=== PATIENT | male | born 1950 | race Two or more races ===

== ENCOUNTER 2016-11-28 04:18 | Emergency (ER) | payer MEDICAID ==
[~2016-11-28] VITALS: Ht 182.9 cm; Wt 104.3 kg
[~2016-11-28 04:18] MED LIST: ASPI81TA27 PO; GABA300T3 PO; GLIP-115 PO; LISI-646 PO; LOS25T GT; METF-490 PO; SULF400T11 PO; TERA1CAP33 PO
[2016-11-28 07:35] LABS: Urine RBC None Seen /hpf (0 - 3)
[2016-11-28 07:51] LABS: Urine Bilirubin Negative (Negative); Urine Blood Negative /uL (Negative); Urine Color Yellow (Yellow); Urine Glucose 4+ mg/dL (Normal); Urine Ketone Negative (Negative); Urine Mucus FEW (None Seen); Urine Nitrite Negative (Negative); Urine Squamous Epithelial Cell FEW /hpf (<5); Urine Urobilinogen Normal (Negative)
[2016-11-28 07:52] LABS: Basophils # (auto) 0.1 uL; Basophils % (auto) 1.2 % (0.0-2.0); Eosinophils # (auto) 0.2 uL; Eosinophils % (auto) 2.9 % (0.0-7.0); Hematocrit 44.7 % (41.0-53.0); Hemoglobin 15.2 g/dL (13.5-17.5); Lymphocytes # (auto) 1.5 uL; Lymphocytes % (auto) 20.3 % (10.0-50.0); Mean Corpuscular Hemoglobin 31.7 pg (28.0-32.0); Mean Corpuscular Volume 93.1 fL (80.0-100.0); Mean Platelet Volume 9.3 fL (6.9-10.8); Monocytes # (auto) 0.6 uL; Monocytes % (auto) 7.4 % (0.0-12.0); Neutrophils # (auto) 5.1 uL; Neutrophils % (auto) 68.2 % (37.0-80.0); Nucleated Red Blood Cells % 0.1 %; Platelet Count (auto) 207 10^3/uL (140-450); Red Cell Distribution Width 13.5 % (11.8-14.3); White Blood Cell 7.5 10^3/uL (4.4-10.8)
[2016-11-28 07:59] VITALS: BP 147/82
[2016-11-28 08:09] LABS: Albumin 3.6 g/dL (3.4-5.0); BUN/Creatinine Ratio 15.1; Bilirubin, Total 0.8 mg/dL (0.2-1.0); Calcium 8.7 mg/dL (8.5-10.1); Potassium 3.8 mmol/L (3.5-5.1); Total Protein 7.8 g/dL (6.4-8.2)
== END 2016-11-28 08:45 | disposition home or self-care (01) ==
LOC: ER 04:19
DX: R30.0 Dysuria (principal); R10.9 Unspecified abdominal pain; E11.9 Type 2 diabetes mellitus without complications; E78.5 Hyperlipidemia, unspecified; I10 Essential (primary) hypertension; Z79.82 Long term (current) use of aspirin
CPT/HCPCS: 36415; 71020; 80053; 81001; 84484; 85025; 93005

== ENCOUNTER 2017-01-28 11:47 | Emergency (ER) | payer MEDICAID ==
[~2017-01-28] VITALS: Ht 175.3 cm; Wt 104.3 kg
[2017-01-28 12:49] LABS: Basophils # (auto) 0.1 uL; Basophils % (auto) 0.9 % (0.0-2.0); Eosinophils # (auto) 0.2 uL; Lymphocytes # (auto) 1.7 uL; Lymphocytes % (auto) 22.1 % (10.0-50.0); Mean Corpuscular Hemoglobin 30.9 pg (28.0-32.0); Mean Corpuscular Hgb Conc. 33.3 g/dL (32.0-36.0); Mean Corpuscular Volume 92.8 fL (80.0-100.0); Mean Platelet Volume 9.9 fL (6.9-10.8); Monocytes # (auto) 0.5 uL; Monocytes % (auto) 6.9 % (0.0-12.0); Neutrophils # (auto) 5.2 uL; Neutrophils % (auto) 67.1 % (37.0-80.0); Nucleated Red Blood Cells % 0.1 %; Platelet Count (auto) 186 10^3/uL (140-450); Red Cell Distribution Width 13.5 % (11.8-14.3); White Blood Cell 7.8 10^3/uL (4.4-10.8)
[2017-01-28 12:56] LABS: Albumin 3.7 g/dL (3.4-5.0); BUN/Creatinine Ratio 14.7; Bilirubin, Total 0.5 mg/dL (0.2-1.0); Calcium 8.6 mg/dL (8.5-10.1); Magnesium 2.1 mg/dL (1.6-2.6); Total Protein 7.6 g/dL (6.4-8.2)
[2017-01-28 14:01] LABS: Urine Bilirubin Negative (Negative); Urine Blood Negative /uL (Negative); Urine Color Yellow (Yellow); Urine Glucose 4+ mg/dL (Normal); Urine Ketone Negative (Negative); Urine Nitrite Negative (Negative); Urine RBC <1 /hpf (0 - 3); Urine Squamous Epithelial Cell FEW /hpf (<5); Urine Urobilinogen Normal (Negative)
[2017-01-28 16:00] VITALS: BP 142/82
== END 2017-01-28 17:27 | disposition home or self-care (01) ==
LOC: ER 11:47
DX: N50.819 Testicular pain, unspecified (principal); E11.65 Type 2 diabetes mellitus with hyperglycemia; N40.0 Benign prostatic hyperplasia without lower urinary tract symptoms; I10 Essential (primary) hypertension; N45.1 Epididymitis; Z79.82 Long term (current) use of aspirin; Z79.899 Other long term (current) drug therapy
CPT/HCPCS: 36415; 74176; 80053; 81001; 83735; 84484; 85025; 93005

== ENCOUNTER 2017-03-24 00:06 | Emergency (ER) | payer MEDICAID ==
[~2017-03-24] VITALS: Ht 170.2 cm; Wt 104.3 kg
[2017-03-24 00:19] VITALS: BP 172/92
== END 2017-03-24 05:09 | disposition home or self-care (01) ==
LOC: ER 00:08
DX: J40 Bronchitis, not specified as acute or chronic (principal); E11.9 Type 2 diabetes mellitus without complications; E78.5 Hyperlipidemia, unspecified; I10 Essential (primary) hypertension; Z79.82 Long term (current) use of aspirin; Z79.84 Long term (current) use of oral hypoglycemic drugs

== ENCOUNTER 2017-05-26 02:57 | Emergency (ER) | payer MEDICAID ==
[~2017-05-26] VITALS: Ht 172.7 cm; Wt 103.4 kg
[2017-05-26 03:57] LABS: Basophils # (auto) 0.1 uL; Basophils % (auto) 0.9 % (0.0-2.0); Eosinophils # (auto) 0.2 uL; Eosinophils % (auto) 3.1 % (0.0-7.0); Hematocrit 42.9 % (41.0-53.0); Hemoglobin 14.6 g/dL (13.5-17.5); Lymphocytes # (auto) 1.8 uL; Lymphocytes % (auto) 24.7 % (10.0-50.0); Mean Corpuscular Hemoglobin 31.7 pg (28.0-32.0); Mean Corpuscular Volume 93.3 fL (80.0-100.0); Monocytes # (auto) 0.5 uL; Monocytes % (auto) 7.2 % (0.0-12.0); Neutrophils # (auto) 4.7 uL; Neutrophils % (auto) 64.1 % (37.0-80.0); Platelet Count (auto) 185 10^3/uL (140-450); Red Cell Distribution Width 13.7 % (11.8-14.3); White Blood Cell 7.4 10^3/uL (4.4-10.8)
[2017-05-26 04:20] LABS: Albumin 3.5 g/dL (3.4-5.0); BUN/Creatinine Ratio 16.3; Bilirubin, Total 0.4 mg/dL (0.2-1.0); Calcium 8.3 mg/dL (8.5-10.1); Magnesium 2.1 mg/dL (1.6-2.6); Potassium 3.6 mmol/L (3.5-5.1); Total Protein 7.4 g/dL (6.4-8.2)
[2017-05-26 04:26] LABS: INR 0.94 (0.9-1.15); Partial Thromboplastin Time 24.9 sec (22.64-33.71); Prothrombin Time 10.2 sec (9.37-12.3)
[2017-05-26] MEDS ORDERED: SODIUM CHLORIDE 0.9% 1,000 ML IV ONE (07:00)
[2017-05-26 09:00] VITALS: BP 145/95
[2017-05-26] MEDS ORDERED: InsuLIN REG 1unit/0.01ml Soln (100units/ml) SC ONE (09:00)
== END 2017-05-26 09:46 | disposition home or self-care (01) ==
LOC: ER 02:58
DX: R07.89 Other chest pain (principal); E11.65 Type 2 diabetes mellitus with hyperglycemia; F41.9 Anxiety disorder, unspecified; E78.5 Hyperlipidemia, unspecified; I10 Essential (primary) hypertension; R51 Headache; Z79.4 Long term (current) use of insulin
CPT/HCPCS: 36415; 70450; 71045; 80053; 82962; 83735; 83880; 84484; 85025; 85610; 85730; 93005; 96360; 96372; 99291; J1815; J7030

== ENCOUNTER 2017-07-04 10:50 | Emergency (ER) | payer MEDICAID ==
[~2017-07-04] VITALS: Ht 175.3 cm; Wt 104.3 kg
[2017-07-04 11:55] LABS: Urine WBC None Seen /hpf (0 - 3)
[2017-07-04 12:03] LABS: Urine Bacteria NONE SEEN /hpf (None Seen); Urine Blood Negative /uL (Negative); Urine Specific Gravity 1.032 (1.001-1.035)
[2017-07-04 12:08] LABS: Basophils # (auto) 0.1 uL; Basophils % (auto) 0.9 % (0.0-2.0); Eosinophils # (auto) 0 uL; Eosinophils % (auto) 0.6 % (0.0-7.0); Hematocrit 45.9 % (41.0-53.0); Hemoglobin 15.3 g/dL (13.5-17.5); Lymphocytes # (auto) 1.1 uL; Lymphocytes % (auto) 14.6 % (10.0-50.0); Mean Corpuscular Hemoglobin 31.2 pg (28.0-32.0); Mean Corpuscular Hgb Conc. 33.4 g/dL (32.0-36.0); Mean Corpuscular Volume 93.2 fL (80.0-100.0); Monocytes # (auto) 0.4 uL; Monocytes % (auto) 4.6 % (0.0-12.0); Neutrophils # (auto) 6.2 uL; Neutrophils % (auto) 79.3 % (37.0-80.0); Nucleated Red Blood Cells % 0.1 %; Platelet Count (auto) 218 10^3/uL (140-450); Red Blood Cells 4.93 10^6/uL (4.5-5.90); Red Cell Distribution Width 13.3 % (11.8-14.3); White Blood Cell 7.8 10^3/uL (4.4-10.8)
[2017-07-04 12:27] LABS: Alanine Aminotransferase 25 U/L (16-61); Albumin 3.7 g/dL (3.4-5.0); Alkaline Phosphatase 76 U/L (45-117); Anion Gap 11 (5-15); Aspartate Aminotransferase 17 U/L (15-37); BUN/Creatinine Ratio 16.7; Bilirubin, Total 0.5 mg/dL (0.2-1.0); Blood Urea Nitrogen 12 mg/dL (7-18); Calcium 8.4 mg/dL (8.5-10.1); Carbon Dioxide 22 mmol/L (21-32); Chloride 101 mmol/L (98-107); GFR African American 141 mL/min; GFR Non-African American 117 mL/min; Glucose 297 mg/dL (74-106); Potassium 3.8 mmol/L (3.5-5.1); Sodium 134 mmol/L (136-145); Total Protein 7.6 g/dL (6.4-8.2)
[2017-07-04] MEDS ORDERED: ONDANSETRON HCL 4 MG/2 ML VIAL IV ONE (14:15)
[2017-07-04] MEDS ORDERED: ONDANSETRON HCL 4 MG/2 ML VIAL ONE (14:15)
[2017-07-04 14:56] LABS: Amylase 55 U/L (25-115); Lipase 103 U/L (73-393)
[2017-07-04 15:00] VITALS: BP 144/74
[2017-07-04] MEDS ORDERED: ACETAMINOPHEN 500 MG TAB PO ONE (15:15)
== END 2017-07-04 15:40 | disposition home or self-care (01) ==
LOC: ER 10:50
DX: R10.84 Generalized abdominal pain (principal); E11.65 Type 2 diabetes mellitus with hyperglycemia; J32.0 Chronic maxillary sinusitis; I10 Essential (primary) hypertension; R51 Headache; Z79.82 Long term (current) use of aspirin; Z79.84 Long term (current) use of oral hypoglycemic drugs
CPT/HCPCS: 36415; 70450; 71046; 74176; 80053; 81001; 82150; 82962; 83690; 84484; 85025; 93005; 96374; 99285; J2405

== ENCOUNTER 2017-10-24 02:45 | Emergency (ER) | payer MEDICAID ==
[~2017-10-24] VITALS: Ht 172.7 cm; Wt 102.1 kg
[2017-10-24 03:36] LABS: Basophils # (auto) 0.1 uL; Basophils % (auto) 1.2 % (0.0-2.0); Eosinophils # (auto) 0.2 uL; Eosinophils % (auto) 2.9 % (0.0-7.0); Hematocrit 44.4 % (41.0-53.0); Hemoglobin 15.2 g/dL (13.5-17.5); Lymphocytes # (auto) 1.7 uL; Lymphocytes % (auto) 18.9 % (10.0-50.0); Mean Corpuscular Hemoglobin 31.9 pg (28.0-32.0); Mean Corpuscular Hgb Conc. 34.2 g/dL (32.0-36.0); Mean Corpuscular Volume 93.4 fL (80.0-100.0); Monocytes # (auto) 0.8 uL; Monocytes % (auto) 8.6 % (0.0-12.0); Neutrophils % (auto) 68.4 % (37.0-80.0); Nucleated Red Blood Cells % 0.1 %; Platelet Count (auto) 186 10^3/uL (140-450); Red Blood Cells 4.75 10^6/uL (4.5-5.90); Red Cell Distribution Width 13.2 % (11.8-14.3); White Blood Cell 8.8 10^3/uL (4.4-10.8)
[2017-10-24 03:48] LABS: INR 0.89 (0.9-1.15); Partial Thromboplastin Time 26.5 sec (23.78-33.04); Prothrombin Time 9.6 sec (9.27-12.13)
[2017-10-24 03:52] LABS: Alanine Aminotransferase 24 U/L (16-61); Albumin 3.4 g/dL (3.4-5.0); Anion Gap 10 (5-15); Aspartate Aminotransferase 17 U/L (15-37); BUN/Creatinine Ratio 10.7; Blood Urea Nitrogen 9 mg/dL (7-18); Calcium 8.2 mg/dL (8.5-10.1); Carbon Dioxide 23 mmol/L (21-32); Chloride 102 mmol/L (98-107); GFR African American 118 mL/min; GFR Non-African American 98 mL/min; Glucose 295 mg/dL (74-106); Magnesium 2.1 mg/dL (1.6-2.6); Potassium 3.5 mmol/L (3.5-5.1); Sodium 135 mmol/L (136-145)
[2017-10-24 03:57] LABS: Alkaline Phosphatase 81 U/L (45-117); Bilirubin, Total 0.5 mg/dL (0.2-1.0); Total Protein 7.7 g/dL (6.4-8.2)
[2017-10-24 07:25] VITALS: BP 132/76
== END 2017-10-24 07:49 | disposition home or self-care (01) ==
LOC: ER 02:45
DX: R07.89 Other chest pain (principal); E11.65 Type 2 diabetes mellitus with hyperglycemia; E11.40 Type 2 diabetes mellitus with diabetic neuropathy, unspecified; K21.9 Gastro-esophageal reflux disease without esophagitis; I10 Essential (primary) hypertension; Z79.82 Long term (current) use of aspirin; Z79.84 Long term (current) use of oral hypoglycemic drugs
CPT/HCPCS: 36415; 71046; 80053; 82962; 83735; 84484; 85025; 85610; 85730; 93005

== ENCOUNTER 2017-12-07 03:39 | Emergency (ER) | payer MEDICARE, MEDICAID ==
[~2017-12-07] VITALS: Ht 170.2 cm; Wt 122.5 kg
[2017-12-07] MEDS ORDERED: ASPirin 81 mg TAB PO ONE (08:00)
[2017-12-07] MEDS ORDERED: NITROGLYCERIN 0.4 MG SL TAB SL ONE (08:00)
[2017-12-07 08:18] VITALS: BP 141/89
[2017-12-07 08:27] LABS: Basophils # (auto) 0.1 uL; Eosinophils # (auto) 0.3 uL; Hematocrit 43.1 % (41.0-53.0); Hemoglobin 14.4 g/dL (13.5-17.5); Lymphocytes # (auto) 1.3 uL; Lymphocytes % (auto) 19.5 % (10.0-50.0); Mean Corpuscular Hemoglobin 31.4 pg (28.0-32.0); Mean Corpuscular Hgb Conc. 33.4 g/dL (32.0-36.0); Mean Corpuscular Volume 94.1 fL (80.0-100.0); Monocytes # (auto) 0.8 uL; Monocytes % (auto) 11.9 % (0.0-12.0); Neutrophils # (auto) 4.2 uL; Neutrophils % (auto) 62.6 % (37.0-80.0); Platelet Count (auto) 188 10^3/uL (140-450); Red Blood Cells 4.58 10^6/uL (4.5-5.90); Red Cell Distribution Width 13.2 % (11.8-14.3); White Blood Cell 6.8 10^3/uL (4.4-10.8)
[2017-12-07 08:46] LABS: Albumin 3.5 g/dL (3.4-5.0); Anion Gap 8 (5-15); Blood Urea Nitrogen 16 mg/dL (7-18); Calcium 8.5 mg/dL (8.5-10.1); Carbon Dioxide 25 mmol/L (21-32); Chloride 102 mmol/L (98-107); Glucose 142 mg/dL (74-106); Potassium 3.6 mmol/L (3.5-5.1); Sodium 135 mmol/L (136-145)
[2017-12-07 08:52] LABS: Alanine Aminotransferase 24 U/L (16-61); Alkaline Phosphatase 57 U/L (45-117); Aspartate Aminotransferase 12 U/L (15-37); BUN/Creatinine Ratio 18.6; Bilirubin, Total 0.6 mg/dL (0.2-1.0); GFR African American 115 mL/min; GFR Non-African American 95 mL/min; Total Protein 7.5 g/dL (6.4-8.2)
[2017-12-07 08:55] LABS: INR 0.94 (0.9-1.15); Partial Thromboplastin Time 26.8 sec (23.78-33.04); Prothrombin Time 10.1 sec (9.27-12.13)
== END 2017-12-07 09:12 | disposition home or self-care (01) ==
LOC: ER 03:51
DX: R07.89 Other chest pain (principal); F41.9 Anxiety disorder, unspecified; E11.9 Type 2 diabetes mellitus without complications; I10 Essential (primary) hypertension; K21.9 Gastro-esophageal reflux disease without esophagitis
CPT/HCPCS: 36415; 71046; 80053; 83735; 83880; 84484; 85025; 85610; 85730

== ENCOUNTER 2018-03-04 05:42 | Emergency (ER) | payer MEDICARE, MEDICAID ==
[~2018-03-04] VITALS: Ht 172.7 cm; Wt 81.6 kg
[2018-03-04 05:59] VITALS: BP 146/84
== END 2018-03-04 07:47 | disposition home or self-care (01) ==
LOC: ER 05:46
DX: S06.309A Unspecified focal traumatic brain injury with loss of consciousness of unspecified duration, initial encounter (principal); E11.9 Type 2 diabetes mellitus without complications; K21.9 Gastro-esophageal reflux disease without esophagitis; I10 Essential (primary) hypertension; F41.9 Anxiety disorder, unspecified; X58.XXXA Exposure to other specified factors, initial encounter; Y93.89 Activity, other specified; Y92.89 Other specified places as the place of occurrence of the external cause; Y99.8 Other external cause status
CPT/HCPCS: 70450

== ENCOUNTER 2018-06-04 05:12 | Emergency (ER) | payer MEDICARE, MEDICAID ==
[~2018-06-04] VITALS: Ht 172.7 cm; Wt 104.3 kg
[2018-06-04 07:49] LABS: Basophils # (auto) 0.1 uL; Basophils % (auto) 0.9 % (0.0-2.0); Eosinophils # (auto) 0.2 uL; Eosinophils % (auto) 2.9 % (0.0-7.0); Hematocrit 42.4 % (41.0-53.0); Hemoglobin 14.2 g/dL (13.5-17.5); Lymphocytes # (auto) 1.9 uL; Lymphocytes % (auto) 26.2 % (10.0-50.0); Mean Corpuscular Hemoglobin 31.5 pg (28.0-32.0); Mean Corpuscular Hgb Conc. 33.4 g/dL (32.0-36.0); Mean Corpuscular Volume 94.1 fL (80.0-100.0); Monocytes # (auto) 0.5 uL; Monocytes % (auto) 7.3 % (0.0-12.0); Neutrophils # (auto) 4.5 uL; Neutrophils % (auto) 62.7 % (37.0-80.0); Nucleated Red Blood Cells % 0.1 %; Platelet Count (auto) 213 10^3/uL (140-450); Red Cell Distribution Width 13.2 % (11.8-14.3); White Blood Cell 7.2 10^3/uL (4.4-10.8)
[2018-06-04 07:52] LABS: Albumin 3.5 g/dL (3.4-5.0)
[2018-06-04 07:53] LABS: INR 0.9 (0.9-1.15); Partial Thromboplastin Time 23.9 sec (23.78-33.04); Prothrombin Time 9.7 sec (9.27-12.13)
[2018-06-04 07:55] LABS: BUN/Creatinine Ratio 13.8
[2018-06-04 07:58] LABS: Bilirubin, Total 0.4 mg/dL (0.2-1.0); Total Protein 7.3 g/dL (6.4-8.2)
[2018-06-04] MEDS ORDERED: SODIUM CHLORIDE 0.9% 1,000 ML IV ONE ×2 (08:03)
[2018-06-04] MEDS ORDERED: InsuLIN REG 1unit/0.01ml Soln (100units/ml) IV ONE (08:15)
[2018-06-04 08:49] LABS: Potassium 3.4 mmol/L (3.5-5.1)
[2018-06-04 11:00] VITALS: BP 146/86
== END 2018-06-04 12:26 | disposition home or self-care (01) ==
LOC: ER 05:12
DX: E11.65 Type 2 diabetes mellitus with hyperglycemia (principal); F41.9 Anxiety disorder, unspecified; R42 Dizziness and giddiness; R51 Headache; I10 Essential (primary) hypertension; K21.9 Gastro-esophageal reflux disease without esophagitis; Z79.4 Long term (current) use of insulin; Z79.82 Long term (current) use of aspirin
CPT/HCPCS: 36415; 80053; 82962; 83880; 84484; 85025; 85610; 85730; 96361; 96374; 99283; J1815; J7030

== ENCOUNTER 2018-09-03 02:19 | Emergency (ER) | payer MEDICARE, MEDICAID ==
[~2018-09-03] VITALS: Ht 162.6 cm; Wt 97.2 kg
[2018-09-03 03:52] LABS: Basophils # (auto) 0.1 uL; Basophils % (auto) 1.5 % (0.0-2.0); Eosinophils # (auto) 0.2 uL; Eosinophils % (auto) 3.3 % (0.0-7.0); Hematocrit 40.7 % (41.0-53.0); Hemoglobin 13.8 g/dL (13.5-17.5); Lymphocytes # (auto) 1.8 uL; Lymphocytes % (auto) 24.5 % (10.0-50.0); Mean Corpuscular Hemoglobin 31.8 pg (28.0-32.0); Mean Corpuscular Hgb Conc. 33.8 g/dL (32.0-36.0); Mean Corpuscular Volume 94.1 fL (80.0-100.0); Monocytes # (auto) 0.5 uL; Monocytes % (auto) 7.3 % (0.0-12.0); Neutrophils # (auto) 4.6 uL; Neutrophils % (auto) 63.4 % (37.0-80.0); Nucleated Red Blood Cells % 0.1 %; Platelet Count (auto) 190 10^3/uL (140-450); Red Blood Cells 4.33 10^6/uL (4.5-5.90); Red Cell Distribution Width 13.3 % (11.8-14.3); White Blood Cell 7.3 10^3/uL (4.4-10.8)
[2018-09-03 04:10] LABS: INR 0.93 (0.9-1.15); Partial Thromboplastin Time 25.5 sec (23.64-32.05)
[2018-09-03 04:13] LABS: Alanine Aminotransferase 20 U/L (16-61); Albumin 3.1 g/dL (3.4-5.0); Anion Gap 10 (5-15); Aspartate Aminotransferase 12 U/L (15-37); BUN/Creatinine Ratio 18.3; Blood Urea Nitrogen 15 mg/dL (7-18); Calcium 8.2 mg/dL (8.5-10.1); Carbon Dioxide 24 mmol/L (21-32); Chloride 105 mmol/L (98-107); GFR African American 121 mL/min; GFR Non-African American 100 mL/min; Glucose 358 mg/dL (74-106); Potassium 3.6 mmol/L (3.5-5.1); Sodium 139 mmol/L (136-145)
[2018-09-03 04:18] LABS: Alkaline Phosphatase 74 U/L (45-117); Bilirubin, Total 0.4 mg/dL (0.2-1.0); Total Protein 6.6 g/dL (6.4-8.2)
[2018-09-03 06:19] VITALS: BP 127/80
== END 2018-09-03 06:48 | disposition home or self-care (01) ==
LOC: ER 02:19
DX: J02.9 Acute pharyngitis, unspecified (principal); J01.00 Acute maxillary sinusitis, unspecified; K02.9 Dental caries, unspecified; N48.1 Balanitis; E11.9 Type 2 diabetes mellitus without complications; K21.9 Gastro-esophageal reflux disease without esophagitis; I10 Essential (primary) hypertension; Z86.39 Personal history of other endocrine, nutritional and metabolic disease; Z79.82 Long term (current) use of aspirin; Z79.899 Other long term (current) drug therapy
CPT/HCPCS: 36415; 71045; 80053; 82962; 83880; 84484; 85025; 85610; 85730; 93005; 94761

== ENCOUNTER 2018-12-24 02:01 | Inpatient (IN) | payer MEDICARE, MEDICAID ==
[~2018-12-24] VITALS: Ht 182.9 cm; Wt 104.3 kg
[~2018-12-24 02:01] MED LIST changes: +ASPI-404 PO; -ASPI81TA27 PO; -GLIP-115 PO; +GLIP5TAB12 PO
[2018-12-24 03:02] LABS: Basophils # (auto) 0.1 uL; Basophils % (auto) 1.5 % (0.0-2.0); Eosinophils # (auto) 0.3 uL; Eosinophils % (auto) 4.1 % (0.0-7.0); Hematocrit 43.9 % (41.0-53.0); Hemoglobin 14.9 g/dL (13.5-17.5); Lymphocytes # (auto) 2.2 uL; Lymphocytes % (auto) 31.2 % (10.0-50.0); Mean Corpuscular Hemoglobin 31.9 pg (28.0-32.0); Mean Corpuscular Hgb Conc. 33.9 g/dL (32.0-36.0); Mean Corpuscular Volume 94.1 fL (80.0-100.0); Monocytes # (auto) 0.6 uL; Neutrophils # (auto) 3.8 uL; Neutrophils % (auto) 54.2 % (37.0-80.0); Platelet Count (auto) 192 10^3/uL (140-450); Red Blood Cells 4.67 10^6/uL (4.5-5.90); Red Cell Distribution Width 13.2 % (11.8-14.3)
[2018-12-24 03:23] LABS: Albumin 3.4 g/dL (3.4-5.0); Anion Gap 6 (5-15); Blood Urea Nitrogen 16 mg/dL (7-18); Calcium 8.4 mg/dL (8.5-10.1); Carbon Dioxide 30 mmol/L (21-32); Chloride 100 mmol/L (98-107); Glucose 266 mg/dL (74-106); Potassium 3.8 mmol/L (3.5-5.1); Sodium 136 mmol/L (136-145)
[2018-12-24 03:29] LABS: Alanine Aminotransferase 19 U/L (16-61); Alkaline Phosphatase 61 U/L (45-117); Aspartate Aminotransferase 13 U/L (15-37); BUN/Creatinine Ratio 17.8; Bilirubin, Total 0.5 mg/dL (0.2-1.0); GFR African American 109 mL/min; GFR Non-African American 90 mL/min; Total Protein 7.2 g/dL (6.4-8.2)
[2018-12-24] MEDS ORDERED: ASPirin 81 mg TAB PO ONE (07:00)
[2018-12-24] MEDS ORDERED: SODIUM CHLORIDE 0.9% 1,000 ML IV ONE (08:11)
[2018-12-24] MEDS ORDERED: InsuLIN REG 1unit/0.01ml Soln (100units/ml) IV ONE (08:15)
[2018-12-24] MEDS ORDERED: PROMETHAZINE HCL 25 MG/ML 1ML IV PRN (10:00)
[2018-12-24] MEDS ORDERED: MORPHINE SULF INJ 2 MG/ML SYRINGE 1ML IV PRN (10:00)
[2018-12-24] MEDS ORDERED: traMADol HCL 50 MG TAB PO PRN (10:00)
[2018-12-24] MEDS ORDERED: DEXTROSE (50%) 50ML SYRG IV PRN (10:00)
[2018-12-24] MEDS ORDERED: TEMAZEPAM 15 MG CAP PO PRN (10:00)
[2018-12-24] MEDS ORDERED: NITROGLYCERIN 0.4 MG SL TAB SL PRN (10:00)
[2018-12-24] MEDS ORDERED: LACTULOSE 20Gm/30ML SOLN PO PRN (10:00)
[2018-12-24] MEDS ORDERED: ADENOSINE 83 MG in GIVE UN-DILUTED 0 ML IV STA (10:44)
[2018-12-24] MEDS: ASPirin 81 mg TAB PO SCH (10:49)
[2018-12-24] MEDS: SODIUM CHLORIDE 0.9% 1,000 ML IV SCH ×2 (10:49→23:18)
[2018-12-24] MEDS: METOPROLOL TARTRATE 25 MG TAB PO SCH ×2 (10:50→12:57)
[2018-12-24] MEDS: glipiZIDE 5 MG TAB PO SCH ×2 (10:50→22:30)
[2018-12-24] MEDS: ENOXAPARIN SOD 40 MG/0.4 ML SYRINGE SC SCH (10:51)
[2018-12-24] MEDS: PANTOPRAZOLE 40 MG TAB PO SCH (10:51)
[2018-12-24] MEDS: LISINOPRIL 20 MG TAB PO SCH (10:51)
[2018-12-24] MEDS: NITROGLYCERIN 0.2MG/HR TOPICAL PATCH TD SCH (10:52)
[2018-12-24 11:29] LABS: Cholesterol 185 mg/dL (< 200); HDL Cholesterol 35 mg/dL (40-59); LDL Cholesterol 136 mg/dL (< 100); Triglycerides 184 mg/dL (< 150)
[2018-12-24] MEDS: InsuLIN REG 1unit/0.01ml Soln (100units/ml) SC SCH ×3 (12:56→19:55)
[2018-12-24] MEDS: ACCU-CHEK COMFORT CURVE STRIP VI SCH ×3 (12:58→19:55)
[2018-12-24 13:35] VITALS: BP 126/76
--- NOTE | 2018-12-24 13:40 | NUR ---
PATIENT ARRIVED TO FLOOR. NO S/S OF DISTRESS NOTED AT THIS TIME. PATIENT ORIENTED RN MARY. ORIENTED TO HOSPITAL ROOM AND USE OF BED, AND CALL LIGHT. PATIENT ON TELE MONITOR NUMBER [id number]. PATIENT COMPLAINS OF NO CHEST PAIN AT THIS TIME. PATIENT UPDATED ON POC. ALL QUESTIONS ANSWERED. BED IN LOWEST LOCKED POSITION WITH CALL LIGHT WITHIN REACH.
[2018-12-24] MEDS: ACETAMINOPHEN 500 MG TAB PO PRN ×2 (16:12→22:40)
[2018-12-24 17:00] VITALS: BP 127/76
--- NOTE | 2018-12-24 18:00 | NUR ---
SPOKE TO Maday BENTLEY REGARDING ELEVATED D-DIMER. NO NEW ORDERS RECEIVED AT THIS TIME.
--- NOTE | 2018-12-24 20:00 | NUR ---
open note assumed care of pt. upon entering room pt awake, alert and oriented x4. pt on room air no distress noted. pt denies any pain at this time. pt updated on plan of care, no questions at this time. pt bed locked, low and 2x rails up. call light in reach, encouraged to call as needed. this nurse will round q1hr and prn.
[2018-12-24] MEDS ORDERED: ATORVASTATIN 20 MG TAB PO SCH (22:00)
[2018-12-24] MEDS: GRALISE PO SCH (22:00)
[2018-12-24 22:01] VITALS: BP 127/69
[2018-12-24] MEDS: TERAZOSIN HCL 1 MG CAP PO SCH (22:30)
[2018-12-25] MEDS: InsuLIN REG 1unit/0.01ml Soln (100units/ml) SC SCH ×6 (00:36→20:28)
[2018-12-25] MEDS: ACCU-CHEK COMFORT CURVE STRIP VI SCH ×6 (00:36→20:27)
[2018-12-25 05:03] VITALS: BP 120/72
[2018-12-25 06:12] LABS: Cholesterol 172 mg/dL (< 200); HDL Cholesterol 29 mg/dL (40-59); LDL Cholesterol 115 mg/dL (< 100); Triglycerides 174 mg/dL (< 150)
--- NOTE | 2018-12-25 07:30 | NUR ---
Opening Shift Note Assumed care of patient, awake and alert X4. No S/S of distress/SOB or pain. Instructed on POC and to call for assist PRN. Instructed patient to ambulate around halls this AM. will continue to monitor for changes Q1hr and PRN.
[2018-12-25] MEDS: ACETAMINOPHEN 500 MG TAB PO PRN ×2 (08:33→22:35)
[2018-12-25 09:00] VITALS: BP 126/76
[2018-12-25] MEDS: NITROGLYCERIN 0.2MG/HR TOPICAL PATCH TD SCH (09:38)
[2018-12-25] MEDS: glipiZIDE 5 MG TAB PO SCH ×2 (09:39→22:32)
[2018-12-25] MEDS: ASPirin 81 mg TAB PO SCH (09:39)
[2018-12-25] MEDS: METOPROLOL TARTRATE 25 MG TAB PO SCH ×2 (09:39→22:00)
[2018-12-25] MEDS: LISINOPRIL 20 MG TAB PO SCH (09:39)
[2018-12-25] MEDS: PANTOPRAZOLE 40 MG TAB PO SCH (09:39)
[2018-12-25] MEDS: ENOXAPARIN SOD 40 MG/0.4 ML SYRINGE SC SCH (09:40)
[2018-12-25] MEDS ORDERED: LEVO25TA6 PO (11:14)
--- NOTE | 2018-12-25 12:00 | NUR ---
PATIENT INSTRUCTED TO AMBULATE AROUND STATION.
[2018-12-25] MEDS: ATORVASTATIN 20 MG TAB PO SCH ×2 (12:15→22:33)
[2018-12-25 12:30] VITALS: BP 116/79
[2018-12-25] MEDS: SODIUM CHLORIDE 0.9% 1,000 ML IV SCH (12:35)
[2018-12-25 16:54] VITALS: BP 122/78
[2018-12-25 22:00] VITALS: BP 113/69
[2018-12-25] MEDS: GRALISE PO SCH (22:00)
[2018-12-25] MEDS: TERAZOSIN HCL 1 MG CAP PO SCH (22:33)
[2018-12-26] MEDS: ACCU-CHEK COMFORT CURVE STRIP VI SCH ×6 (00:01→20:19)
[2018-12-26] MEDS: InsuLIN REG 1unit/0.01ml Soln (100units/ml) SC SCH ×6 (00:10→20:19)
[2018-12-26] MEDS: SODIUM CHLORIDE 0.9% 1,000 ML IV SCH ×2 (04:35→15:06)
[2018-12-26] MEDS: ACETAMINOPHEN 500 MG TAB PO PRN (04:40)
[2018-12-26 04:41] VITALS: BP 131/69
[2018-12-26] MEDS: LEVOTHYROXINE SODIUM 25 MCG TAB PO SCH (06:46)
--- NOTE | 2018-12-26 07:30 | NUR ---
PATIENT RESTING IN BED SEMI FOWLERS. NO S/S OF DISTRESS NOTED AT THIS TIME. PATIENT RATES PAIN 1/10 HEADACHE. DENIES CHEST PAIN AT THIS TIME. UPDATED ON POC. ALL QUESTIONS ANSWERED. BED IN LOWEST LOCKED POSITION WITH CALL LIGHT WITHIN REACH. WILL CONTINUE CARE.
[2018-12-26 08:00] VITALS: BP 123/71
--- NOTE | 2018-12-26 08:00 | NUR ---
SPOKE TO Maday BORGES REGARDING STRESS TEST. STATED HE WOULD AMEND TO NON ISCHEMIC STRESS TEST.
[2018-12-26] MEDS: LISINOPRIL 20 MG TAB PO SCH (09:23)
[2018-12-26] MEDS: glipiZIDE 5 MG TAB PO SCH ×2 (09:23→21:42)
[2018-12-26] MEDS: METOPROLOL TARTRATE 25 MG TAB PO SCH ×2 (09:23→21:40)
[2018-12-26] MEDS: ASPirin 81 mg TAB PO SCH (09:23)
[2018-12-26] MEDS: PANTOPRAZOLE 40 MG TAB PO SCH (09:23)
[2018-12-26] MEDS: NITROGLYCERIN 0.2MG/HR TOPICAL PATCH TD SCH (09:24)
[2018-12-26] MEDS: ENOXAPARIN SOD 40 MG/0.4 ML SYRINGE SC SCH (09:24)
[2018-12-26 12:30] VITALS: BP 144/81
--- NOTE | 2018-12-26 16:25 | NUR ---
SPOKE TO Maday BENTLEY. CLEARED FROM CARDIOLOGY STANDPOINT.
[2018-12-26 16:59] VITALS: BP 137/82
--- NOTE | 2018-12-26 19:15 | NUR ---
RECEIVED PATIENT AWAKE, ALERT, ORIENTED X4. NO S/S OF RESPIRATORY DISTRESS. ORIENTED ON PLAN OF CARE. BED IS LOCKED ND IN LOWEST POSITION, SIDE RAILS UP X2, CALL LIGHT WITHIN REACH. WILL CONTINUE TO MONITOR
[2018-12-26 21:00] VITALS: BP 137/78
[2018-12-26] MEDS: GRALISE PO SCH (21:41)
[2018-12-26] MEDS: ATORVASTATIN 20 MG TAB PO SCH (21:42)
[2018-12-26] MEDS: TERAZOSIN HCL 1 MG CAP PO SCH (21:42)
[2018-12-27] MEDS: InsuLIN REG 1unit/0.01ml Soln (100units/ml) SC SCH ×5 (00:08→16:26)
[2018-12-27] MEDS: ACCU-CHEK COMFORT CURVE STRIP VI SCH ×5 (00:08→16:27)
[2018-12-27] MEDS: SODIUM CHLORIDE 0.9% 1,000 ML IV SCH ×2 (02:08→16:27)
[2018-12-27 04:30] VITALS: BP 131/70
[2018-12-27] MEDS: LEVOTHYROXINE SODIUM 25 MCG TAB PO SCH (06:24)
--- NOTE | 2018-12-27 06:59 | NUR ---
CARE ENDORSED TO AM SHIFT RN
[2018-12-27 08:00] VITALS: BP 142/86
--- NOTE | 2018-12-27 09:01 | NUR ---
RECEIVED PATIENT AWAKE, ALERT, ORIENTED X4. NO S/S OF RESPIRATORY DISTRESS. ORIENTED ON PLAN OF CARE. BED IS LOCKED ND IN LOWEST POSITION, SIDE RAILS UP X2, CALL LIGHT WITHIN REACH. WILL CONTINUE TO MONITOR. BLOOD GLUCOSE 141 AT 8:00 AM
[2018-12-27] MEDS: NITROGLYCERIN 0.2MG/HR TOPICAL PATCH TD SCH (10:00)
[2018-12-27] MEDS: METOPROLOL TARTRATE 25 MG TAB PO SCH (10:09)
[2018-12-27] MEDS: ASPirin 81 mg TAB PO SCH (10:10)
[2018-12-27] MEDS: PANTOPRAZOLE 40 MG TAB PO SCH (10:10)
[2018-12-27] MEDS: glipiZIDE 5 MG TAB PO SCH (10:10)
[2018-12-27] MEDS: LISINOPRIL 20 MG TAB PO SCH (10:10)
[2018-12-27] MEDS: ENOXAPARIN SOD 40 MG/0.4 ML SYRINGE SC SCH (10:10)
[2018-12-27 12:00] VITALS: BP 138/85
--- NOTE | 2018-12-27 12:46 | NUR ---
NUTRITION ASSESSMENT NOTES Please refer to link notes of nutrition screen form filed under the intervention section of the plan of care for further details. Est. Needs: 2100 kcal to 2600 kcal (20-25 kcal/kgBW), 83 gms to 104 gms pro (0.8-1.0 gms/kgBW). Will continue to monitor pertinent labs and reassess nutrient need prn Thank you. Addendum: 12/27/18 at [address] Amended: Links added.
[2018-12-27] MEDS ORDERED: ATOR40TA52 PO (15:34)
[2018-12-27] MEDS ORDERED: MET25T PO (15:35)
[2018-12-27 16:58] VITALS: BP 138/85
[2018-12-27 17:00] VITALS: BP 138/82
--- NOTE | 2018-12-27 18:00 | NUR ---
PATIENT DISCHARGED HOME. ALL IV ACCESS DISCONTINUED. TELEMETRY DISCONTINUED AND RETURNED TO TELEMETRY DEPARTMENT. ALL DISCHARGE INSTRUCTIONS GIVEN. ALL DISCHARGE PAPERWORK SIGNED.
== END 2018-12-27 18:00 | disposition home or self-care (01) | DRG 313 ==
LOC: ER 02:03 → TELE 02:04 → TELE-CENTR 13:35
PROVIDERS: ADMIT Internal Medicine; ATTEND Internal Medicine Nephrology
DX: R07.89 Other chest pain (principal); I50.33 Acute on chronic diastolic (congestive) heart failure; E11.65 Type 2 diabetes mellitus with hyperglycemia; E78.00 Pure hypercholesterolemia, unspecified; F41.9 Anxiety disorder, unspecified; E03.9 Hypothyroidism, unspecified; E78.5 Hyperlipidemia, unspecified; I11.0 Hypertensive heart disease with heart failure; K21.9 Gastro-esophageal reflux disease without esophagitis; E66.9 Obesity, unspecified; Z82.49 Family history of ischemic heart disease and other diseases of the circulatory system; Z83.3 Family history of diabetes mellitus; Z68.30 Body mass index [BMI] 30.0-30.9, adult; N40.1 Benign prostatic hyperplasia with lower urinary tract symptoms
CPT/HCPCS: 36415; 71045; 78452; 80053; 80061; 82550; 82962; 83036; 83880; 84443; 84484; 85025; 85379; 85652; 86141; 93005; 93017; 93306; 93926; G0378; J0153; J1815

== ENCOUNTER 2022-04-13 00:03 | Emergency (ER) | payer MEDICARE, MEDICAID ==
[~2022-04-13] VITALS: Ht 170.2 cm; Wt 93.5 kg
[~2022-04-13 00:03] MED LIST changes: -ASPI-404 PO; +ASPI-543 PO; +LEVO25TA6 PO; -LISI-646 PO; +MET25T PO; -SULF400T11 PO
[2022-04-13 09:42] VITALS: BP 138/87
[2022-04-13] MEDS ORDERED: ACET1CAP14 PO (11:33)
[2022-04-13] MEDS ORDERED: CYCL-839 PO (11:33)
[2022-04-13] MEDS ORDERED: ACETAMINOPHEN 500 MG TAB PO ONE (11:45)
== END 2022-04-13 11:53 | disposition home or self-care (01) ==
LOC: ER 00:03
DX: S46.911A Strain of unspecified muscle, fascia and tendon at shoulder and upper arm level, right arm, initial encounter (principal); S20.20XA Contusion of thorax, unspecified, initial encounter; F41.9 Anxiety disorder, unspecified; E11.9 Type 2 diabetes mellitus without complications; K21.9 Gastro-esophageal reflux disease without esophagitis; Z79.899 Other long term (current) drug therapy; Z79.84 Long term (current) use of oral hypoglycemic drugs; W01.0XXA Fall on same level from slipping, tripping and stumbling without subsequent striking against object, initial encounter; Y93.89 Activity, other specified; Y92.89 Other specified places as the place of occurrence of the external cause; Y99.8 Other external cause status
CPT/HCPCS: 71046; 71101; 73030